=== PATIENT | female | born 1985 | race African-American/Black ===

== ENCOUNTER 2018-09-01 18:11 | Emergency (ER) | payer MEDICAID, MEDICARE ==
[~2018-09-01] VITALS: Ht 170.2 cm; Wt 68.0 kg
[2018-09-01] MEDS ORDERED: ALBUTEROL (0.083%) 2.5MG/3ML NEB HHN STA (18:27)
[2018-09-01] MEDS ORDERED: IPRATROPIUM BROMIDE (0.02%) 0.5MG/2.5ML NEB HHN STA (18:27)
[2018-09-01] MEDS ORDERED: PREDNISONE 20MG TABLET PO ONE (19:30)
[2018-09-01 19:49] VITALS: BP 100/58
== END 2018-09-01 19:48 | disposition home or self-care (01) ==
LOC: ER 18:35
DX: J45.901 Unspecified asthma with (acute) exacerbation (principal); R03.0 Elevated blood-pressure reading, without diagnosis of hypertension; F12.90 Cannabis use, unspecified, uncomplicated
CPT/HCPCS: 81025; 94640; 99283; J7512; J7611

== ENCOUNTER 2022-01-01 04:57 | Emergency (ER) | payer MEDICAID, MEDICARE ==
[~2022-01-01] VITALS: Ht 170.2 cm; Wt 73.7 kg
[2022-01-01] MEDS ORDERED: IPRATROPIUM BROMIDE (0.02%) 0.5MG/2.5ML NEB HHN STA (05:20)
[2022-01-01] MEDS ORDERED: PREDNISONE 20MG TABLET PO STA (05:20)
[2022-01-01 05:27] VITALS: BP 123/87
[2022-01-01] MEDS: ALBUTEROL (0.083%) 2.5MG/3ML NEB HHN SCH ×3 (05:32→06:22)
[2022-01-01] MEDS ORDERED: ALBU6.7H9 INH (05:52)
[2022-01-01] MEDS ORDERED: P50 MT (05:52)
== END 2022-01-01 09:12 | disposition left against medical advice (07) ==
LOC: ER 04:57
DX: J45.901 Unspecified asthma with (acute) exacerbation (principal)
CPT/HCPCS: 94640; 99285; J7512; Z7610

== ENCOUNTER 2022-12-20 23:02 | Emergency (ER) | payer MEDICAID ==
[~2022-12-20] VITALS: Ht 170.2 cm; Wt 63.5 kg
[~2022-12-20 23:02] MED LIST: ALBU6.7H3 INH; P50 MT
[2022-12-20 23:12] VITALS: BP 162/53
[2022-12-20] MEDS ORDERED: P50 MT (23:42)
[2022-12-20] MEDS ORDERED: ALBU6.7H3 INH (23:42)
== END 2022-12-20 23:55 | disposition home or self-care (01) ==
LOC: ER 23:02
DX: J45.901 Unspecified asthma with (acute) exacerbation (principal); Z87.440 Personal history of urinary (tract) infections; F12.10 Cannabis abuse, uncomplicated
CPT/HCPCS: 99283

== ENCOUNTER 2024-01-29 12:15 | Inpatient (IN) | payer MEDICAID, MEDICARE ==
[~2024-01-29] VITALS: Ht 177.8 cm; Wt 70.3 kg
[2024-01-29 13:14] LABS: BASOPHILS % 0.3 % (0.0-2.0); EOSINOPHILS % 3.1 % (0.0-5.0); HEMATOCRIT. 44.1 % (36.0-48.0); HEMOGLOBIN. 15.3 g/dL (12.0-16.0); LYMPHOCYTES % 24.8 % (20.0-50.0); MEAN CORPUSCULAR HEMOGLOBIN 28.6 pg (28.0-32.0); MEAN CORPUSCULAR HGB CONC 34.7 g/dL (31.0-37.0); MEAN CORPUSCULAR VOLUME 82.5 fL (81.0-99.0); MEAN PLATELET VOLUME 7.9 fl (7.4-10.4); MONOCYTES % 7.6 % (2.0-8.0); NEUTROPHILS % 64.2 % (40.0-76.0); PLATELET 218 x1000/uL (130-400); RED BLOOD CELL COUNT 5.35 mill/uL (4.2-5.4); RED CELL DISTRIBUTION WIDTH 14.8 % (11.6-14.6); WHITE BLOOD COUNT 8.2 x1000/uL (4.5-11.0)
[2024-01-29 13:24] LABS: CHLORIDE 105 mEq/L (98-107); POTASSIUM 3.7 mEq/L (3.5-5.1); SODIUM 136 mEq/L (136-145)
[2024-01-29 13:25] LABS: CALCIUM 9.3 mg/dL (8.7-10.4); CARBON DIOXIDE 26 mEq/L (21-32)
[2024-01-29 13:30] LABS: CREATININE 0.9 mg/dL (0.6-1.0); GLUCOSE 76 mg/dL (70-105); UREA NITROGEN BLOOD 8 mg/dL (9-23)
[2024-01-29 13:32] LABS: ALANINE AMINOTRANSFERASE < 7 IU/L (10-49); ALBUMIN 4.4 g/dL (3.2-4.8); ASPARTATE AMINOTRANSFERASE 15 IU/L (<34); BILIRUBIN TOTAL 0.5 mg/dL (0.1-1.0); PROTEIN TOTAL 7.3 g/dL (6.0-8.3)
[2024-01-29 13:55] LABS: CLARITY URINE CLEAR (CLEAR); COLOR URINE YELLOW (YELLOW); GLUCOSE URINE NEGATIVE (NEGATIVE); KETONES URINE NEGATIVE (NEGATIVE); LEUKOCYTE ESTERASE URINE NEGATIVE (NEGATIVE); NITRITE URINE NEGATIVE (NEGATIVE); OCCULT BLOOD URINE NEGATIVE (NEGATIVE); PROTEIN URINE NEGATIVE (NEGATIVE); SPECIFIC GRAVITY URINE 1.021 (1.005-1.030)
[2024-01-29 13:58] LABS: B-HCG QUANTITATIVE 28091 mIU/mL (<3)
[2024-01-29] MEDS ORDERED: NEOSTIGMINE METHYLSULFATE 1MG/ML 10 ML VIAL ONE (18:49)
[2024-01-29] MEDS ORDERED: ROCURONIUM BROMIDE 10MG/ML VIAL 5ML IV ONE (18:49)
[2024-01-29] MEDS ORDERED: DEXAMETHASONE 4MG/ML 1ML VIAL ONE (18:49)
[2024-01-29] MEDS ORDERED: ONDANSETRON HCL 4MG/2ML INJ ONE (18:49)
[2024-01-29] MEDS ORDERED: GLYCOPYRROLATE 0.2 MG/ML 2ML VIAL ONE ×2 (18:50)
[2024-01-29] MEDS ORDERED: MIDAZOLAM HCL 2 MG/2 ML VIAL ONE ×2 (18:50→20:12)
[2024-01-29] MEDS ORDERED: FENTANYL CITRATE/PF 50MCG/ML 2ML VIAL ONE (18:50)
[2024-01-29] MEDS ORDERED: LIDOCAINE HCL 1% 10 MG/ML 10ML VIAL ONE (19:27)
[2024-01-29] MEDS ORDERED: HYDROMORPHONE HCL/PF 2MG/ML CPJ ONE (19:40)
[2024-01-29] MEDS ORDERED: SKIN ADHESIVE 0.7 GM EA TOP ONE (20:04)
[2024-01-29] MEDS ORDERED: ONDANSETRON HCL 4MG/2ML INJ IV PRN (20:30)
[2024-01-29] MEDS ORDERED: CEFAZOLIN 1000MG PREMIX 50 ML IV SCH ×2 (20:30→21:00)
[2024-01-29] MEDS ORDERED: MORPHINE SULFATE 4 MG/ML INJ (FOR IV/IM USE) IV PRN (20:30)
[2024-01-29] MEDS ORDERED: ACETAMINOPHEN 650MG SUPP PR PRN ×2 (20:30)
[2024-01-29] MEDS: DEXT 5%/0.45% NACL KCL 20MEQ/L 1,000 ML IV SCH (21:00)
[2024-01-29] MEDS: MORPHINE SULFATE 2 MG/ML CPJ (NOT FOR IM USE) IV PRN (22:48)
[2024-01-30] VITALS (7 sets, daily range): BP systolic 102–118; BP diastolic 60–71; PULSE 51–69; RESP 17–19; TEMP 97.4–100.9
[2024-01-30] MEDS ORDERED: MAGNESIUM/ALUMINUM HYDROXIDE/SIMETHICONE 30ML UDC PO PRN (01:00)
[2024-01-30] MEDS ORDERED: GUAIFENESIN 200MG/10ML SUGAR FREE UDC PO PRN (01:00)
[2024-01-30] MEDS ORDERED: DIPHENHYDRAMINE 50MG/ML VIAL IV PRN (01:00)
[2024-01-30] MEDS ORDERED: ACETAMINOPHEN 325MG TABLET PO PRN (01:00)
[2024-01-30] MEDS ORDERED: ONDANSETRON HCL 4MG/2ML INJ IV PRN (01:00)
[2024-01-30] MEDS: SODIUM CHLORIDE 0.9% INJ 3ML FLUSH IVF SCH (05:56)
[2024-01-30 07:40] LABS: HEMATOCRIT. 38.4 % (36.0-48.0); HEMOGLOBIN. 12.9 g/dL (12.0-16.0); MEAN CORPUSCULAR HEMOGLOBIN 27.7 pg (28.0-32.0); MEAN CORPUSCULAR HGB CONC 33.5 g/dL (31.0-37.0); MEAN CORPUSCULAR VOLUME 82.6 fL (81.0-99.0); MEAN PLATELET VOLUME 8.7 fl (7.4-10.4); PLATELET 214 x1000/uL (130-400); RED BLOOD CELL COUNT 4.64 mill/uL (4.2-5.4); RED CELL DISTRIBUTION WIDTH 14.5 % (11.6-14.6); WHITE BLOOD COUNT 12.6 x1000/uL (4.5-11.0)
[2024-01-30 07:53] LABS: DIFFERENTIAL COMMENT 1
[2024-01-30] MEDS: CEFAZOLIN 1000MG PREMIX 50 ML IV SCH ×2 (08:26→23:34)
[2024-01-30] MEDS: ACETAMINOPHEN 325MG TABLET PO PRN (17:33)
[2024-01-30] MEDS: IPRATROPIUM/ALBUTEROL 0.5-3(2.5)MG/3ML NEB HHN PRN (21:06)
[2024-01-30 22:33] LABS: PLATELET ESTIMATE NORMAL
[2024-01-31] VITALS: BP 102/61; PULSE 64; RESP 19; TEMP 97.4
[2024-01-31 04:00] VITALS: BP 97/60; PULSE 62; RESP 18; TEMP 97.6
[2024-01-31 08:29] VITALS: BP 103/65; PULSE 59; RESP 18; TEMP 98
[2024-01-31 11:22] VITALS: BP 112/71; PULSE 72; TEMP 97.8; O2SAT 98
== END 2024-01-31 12:40 | disposition home or self-care (01) | DRG 547 ==
LOC: ER 13:24 → 6WST 18:42 → EDBEDREQ 18:53 → EDBEDREQTM 18:53
PROVIDERS: ADMIT Internal Medicine; ATTEND Internal Medicine
PROC: 0UB50ZZ Excision of Right Fallopian Tube, Open Approach (ICD-10-PCS; principal; 2024-01-29)
DX: O00.90 Unspecified ectopic pregnancy without intrauterine pregnancy (principal); J45.909 Unspecified asthma, uncomplicated; Z3A.01 Less than 8 weeks gestation of pregnancy; N83.201 Unspecified ovarian cyst, right side
CPT/HCPCS: 36415; 76830; 76856; 80053; 81003; 84702; 85025; 86850; 86900; 88302; 94640; 99285; J0690; J1100; J1170; J2250; J2270; J2405; J2710; J3010; J3490

== ENCOUNTER 2024-03-08 16:16 | Emergency (ER) | payer MEDICAID ==
[~2024-03-08] VITALS: Ht 170.2 cm; Wt 59.0 kg
[2024-03-08 16:20] VITALS: O2SAT 99
[2024-03-08] MEDS ORDERED: METH-653 MT (17:47)
[2024-03-08] MEDS ORDERED: IBUP-2029 MT (17:47)
[2024-03-08] MEDS: CYCLOBENZAPRINE 10MG TABLET PO ONE (18:00)
[2024-03-08] MEDS: IBUPROFEN 600MG TABLET PO ONE (18:00)
[2024-03-08 18:16] VITALS: BP 133/71; PULSE 78; RESP 18; TEMP 98.1
== END 2024-03-08 18:15 | disposition home or self-care (01) ==
LOC: ER 16:16
DX: S33.5XXA Sprain of ligaments of lumbar spine, initial encounter (principal); S13.4XXA Sprain of ligaments of cervical spine, initial encounter; F12.10 Cannabis abuse, uncomplicated; J45.909 Unspecified asthma, uncomplicated; Z98.890 Other specified postprocedural states; V49.9XXA Car occupant (driver) (passenger) injured in unspecified traffic accident, initial encounter; Y93.89 Activity, other specified; Y92.89 Other specified places as the place of occurrence of the external cause; Y99.8 Other external cause status
CPT/HCPCS: 99283

== ENCOUNTER 2024-04-16 13:21 | Emergency (ER) | payer MEDICAID ==
[~2024-04-16] VITALS: Ht 177.8 cm; Wt 61.0 kg
[~2024-04-16 13:21] MED LIST changes: +IBUP-2029 MT; +METH-653 MT
[2024-04-16 13:24] VITALS: BP 120/72; PULSE 65; RESP 20; TEMP 97.8; O2SAT 99
[2024-04-16 13:46] LABS: CLARITY URINE CLOUDY (CLEAR); COLOR URINE ORANGE (YELLOW); GLUCOSE URINE NEGATIVE (NEGATIVE); KETONES URINE TRACE (NEGATIVE); LEUKOCYTE ESTERASE URINE 2+ (NEGATIVE); NITRITE URINE POSITIVE (NEGATIVE); OCCULT BLOOD URINE 3+ (NEGATIVE); PH URINE 5.5 (4.5-8.0); PROTEIN URINE 2+ (NEGATIVE); SPECIFIC GRAVITY URINE 1.019 (1.005-1.030)
[2024-04-16 14:02] LABS: BACTERIA URINE 1+; MUCUS URINE TRACE /lpf (< = 2+); SQUAMOUS EPITHELIAL CELL URINE FEW /lpf (RARE/1+)
[2024-04-16 14:03] LABS: RBC URINE 50-100 /hpf (0-2); WBC URINE 50-100 /hpf (0-2)
[2024-04-16] MEDS ORDERED: CEPH500T MT (15:04)
[2024-04-16] MEDS ORDERED: PHEN-815 MT (15:04)
== END 2024-04-16 15:11 | disposition home or self-care (01) ==
LOC: ER 13:21
DX: N39.0 Urinary tract infection, site not specified (principal); J45.909 Unspecified asthma, uncomplicated; F12.90 Cannabis use, unspecified, uncomplicated; Z98.890 Other specified postprocedural states; Z79.899 Other long term (current) drug therapy
CPT/HCPCS: 81003; 81025; 87077; 87186; 99283